=== PATIENT | male | born 1990 | race African-American/Black ===

== ENCOUNTER 2017-08-04 03:21 | Emergency (ER) | payer OTHER ==
[~2017-08-04] VITALS: Ht 180.3 cm; Wt 65.5 kg
[~2017-08-04 03:21] MED LIST: BACL20TA PO; CETI1TAB21 PO; FENT50DI T-DERMAL; FLUT50SP EACH NARE; GABA600T PO; MIRTA15 PO; OXYC30TA PO
[2017-08-04 03:22] VITALS: BP 141/89; PULSE 90; RESP 14; TEMP 98.4; O2SAT 95
[2017-08-04] MEDS ORDERED: KETOROLAC TROMETHAMINE 30 MG/ML (IVP) VIAL IV PUSH ONE (03:45)
[2017-08-04] MEDS ORDERED: ONDANSETRON HCL 4 MG/2 ML VIAL IV PUSH ONE (03:45)
[2017-08-04] MEDS ORDERED: SODIUM CHLOR 0.9% 1000 ML INJ 1,000 ML IV ONE (03:45)
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
[2017-08-04 04:11] LABS: AUTOMATED NEUTROPHIL # 7.4 TH/MM3 (1.8-7.7); BASOPHIL # 0.1 TH/MM3 (0-0.2); BASOPHIL % 0.5 % (0.0-2.0); EOSINOPHIL # 0.1 TH/MM3 (0-0.4); EOSINOPHIL % 0.8 % (0.0-4.0); HEMATOCRIT 46.9 % (39.0-51.0); HEMOGLOBIN 16.4 GM/DL (13.0-17.0); LYMPH % 21.6 % (9.0-44.0); LYMPHOCYTE # 2.3 TH/MM3 (1.0-4.8); MEAN CELL VOLUME 75.5 FL (80.0-100.0); MEAN CORPUSCULAR HEMOGLOBIN 26.3 PG (27.0-34.0); MEAN CORPUSCULAR HGB CONC 34.8 % (32.0-36.0); MEAN PLATELET VOLUME 9.7 FL (7.0-11.0); MONO % 7.3 % (0.0-8.0); MONOCYTE # 0.8 TH/MM3 (0-0.9); NEUT % 69.8 % (16.0-70.0); PLATELET COUNT 178 TH/MM3 (150-450); RED BLOOD COUNT 6.21 MIL/MM3 (4.50-5.90); RED CELL DISTRIBUTION WIDTH 14.8 % (11.6-17.2); WHITE BLOOD COUNT 10.6 TH/MM3 (4.0-11.0)
--- NOTE | 2017-08-04 04:11 | RADRPT ---
EXAM DATE/TIME: 08/04/2017 03:57 [facility] COMPARISON: No previous studies available for comparison. INDICATIONS : Short of breath. Flu like symptoms. MEDICAL HISTORY : None. SURGICAL HISTORY : None. ENCOUNTER: Initial ACUITY: 4 - 6 days PAIN SCORE: 3/10 LOCATION: Bilateral chest FINDINGS: A single view of the chest demonstrates the lungs to be symmetrically aerated without evidence of mas s, infiltrate or effusion. The cardiomediastinal contours are unremarkable. Osseous structures are intact. CONCLUSION: No acute disease. Jason Daniel MD on August 04, 2017 at 4:09 Board Certified Radiologist. This report was verified electronically.
[2017-08-04 04:17] VITALS: RESP 20
[2017-08-04 04:23] LABS: ALKALINE PHOSPHATASE 112 U/L (45-117); TOTAL BILIRUBIN ADULT 0.2 MG/DL (0.2-1.0); TOTAL PROTEIN 8.2 GM/DL (6.4-8.2)
[2017-08-04 04:32] LABS: ALBUMIN 4.4 GM/DL (3.4-5.0); ALT (GPT) 24 U/L (12-78); AST (GOT) 22 U/L (15-37); BICARBONATE 29.1 MEQ/L (21.0-32.0); BLOOD UREA NITROGEN 8 MG/DL (7-18); CALCIUM 9.5 MG/DL (8.5-10.1); CHLORIDE 104 MEQ/L (98-107); CREATININE 0.94 MG/DL (0.60-1.30); GLOMERULAR FILTRATION RATE 120 ML/MIN (>89); GLUCOSE,RANDOM 98 MG/DL (74-106); SODIUM (NA) 141 MEQ/L (136-145)
[2017-08-04] MEDS ORDERED: ZOFR4TAB3 SL (04:52)
[2017-08-04 04:54] VITALS: RESP 20
== END 2017-08-04 05:57 | disposition home or self-care (01) ==
LOC: NEPC 03:21
DX: B34.9 Viral infection, unspecified (principal); G82.20 Paraplegia, unspecified; Z99.3 Dependence on wheelchair; Z79.899 Other long term (current) drug therapy
CPT/HCPCS: 71045; 80053; 83690; 85025; 87804; 96361; 96374; 96375; 99284; J1885; J2405; J7030